=== PATIENT | male | born 1940 | race Caucasian/White ===

== ENCOUNTER 2019-06-02 21:58 | Emergency (ER) | payer OTHER, MEDICAID ==
[~2019-06-02] VITALS: Ht 167.6 cm; Wt 72.1 kg
[~2019-06-02 21:58] MED LIST: SIMVASTATIN10 M1 PO; ZESTRIL5 MG PO
[2019-06-02 22:04] VITALS: Ht 167.6 cm; Wt 72.1 kg
[2019-06-02 23:35] VITALS: BP 156/90
== END 2019-06-02 23:35 | disposition home or self-care (01) ==
LOC: ED 21:58
DX: N39.0 Urinary tract infection, site not specified (principal); E11.9 Type 2 diabetes mellitus without complications; I10 Essential (primary) hypertension; Z98.890 Other specified postprocedural states

== ENCOUNTER 2020-04-03 21:06 | Emergency (ER) | payer OTHER, MEDICAID ==
[~2020-04-03] VITALS: Ht 167.6 cm; Wt 68.5 kg
[2020-04-03 21:15] VITALS: Ht 167.6 cm; Wt 68.5 kg
[2020-04-04 00:03] VITALS: BP 111/55
== END 2020-04-04 00:03 | disposition home or self-care (01) ==
LOC: ED 21:06
DX: N40.0 Benign prostatic hyperplasia without lower urinary tract symptoms (principal); R33.9 Retention of urine, unspecified